=== PATIENT | male | born 2000 | race Caucasian/White ===

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

== ENCOUNTER 2019-03-03 12:20 | Inpatient (IN) | payer OTHER | END 2019-03-07 16:17 | disposition home or self-care (01) | LOC: JER 12:20 → JERBED 21:57 → J8W 23:31 ==

== ENCOUNTER 2020-02-07 20:01 | Emergency (ER) | payer OTHER ==
[2020-02-07 20:16] VITALS: BP 129/87; PULSE 74; TEMP 98.9; BMI 25.7
[2020-02-07] MEDS ORDERED: ACETAMINOPHEN 500 MG TABLET (FP) PO ONE (20:31)
--- NOTE | 2020-02-07 20:34 | PDOC ---
History of Present Illness - General Chief Complaint: Injury Stated Complaint: INJURY Time Seen by Provider: 02/07/20 20:21 History Source: Patient Exam Limitations: No Limitations - History of Present Illness Initial Comments: 02/07/20 20:32 19M PMH asthma p/w right 5th knuckle pain and swelling after punching sheetrock wall. Has recently sustained injury in same region and was found to have right 5th metacarpal neck fracture on 12/23/19. Was unable to follow up with hand surgery. Denies sensory changes. PCN allergy. Past History - Medical History Allergies/Adverse Reactions: Allergies Allergy/AdvReac Type Severity Reaction Status Date / Time amoxicillin Allergy Verified 12/23/19 17:59 Penicillins Allergy Verified 12/23/19 17:59 Home Medications: Ambulatory Orders Ibuprofen [Advil -] 200 mg PO PRN PRN 03/03/19 COPD: No Psychiatric Problems: Yes (ADHD) - Psycho-Social/Smoking History Smoking History: Never smoked Have you smoked in the past 12 months: No Number of Cigarettes Smoked Daily: 3 - Substance Abuse Hx (Audit-C & DAST Scrn) How often the patient has a drink containing alcohol: Never Score: In Men: 4 or > Positive; In Women: 3 or > Positive: 0 Screen Result (Pos requires Nsg. Audit-10AR): Negative Review of Systems - Review of Systems Comments:: 02/08/20 06:06 CONSTITUTIONAL: Denies F / C HEENT: Denies headache, lightheadedness, dizziness, changes in vision / hearing, diplopia, blurry vision, sore throat, rhinorrhea RESP: Denies SOB, cough, orthopnea, BISWAS CARD: Denies chest pain, palpitations GI: Denies N / V / D, abdominal pain, bloody stool, inability to tolerate PO : Denies dysuria, hematuria, frequency NEURO: Denies numbness, tingling, weakness MSK: + right hand pain and swelling, see HPI SKIN: Denies rashes *Physical Exam - Vital Signs Last Vital Signs Temp Pulse Resp BP Pulse Ox 98.9 F 74 20 129/87 99 02/07/20 20:10 02/07/20 20:10 02/07/20 20:10 02/07/20 20:10 02/07/20 20:10 - Physical Exam 02/08/20 06:06 GEN: Well appearing, NAD, comfortable. AAOx3. HEENT: NC/AT, EOMI, PERRL. No facial asymmetry. Moist mucous membranes. Normal voice. Supple neck w/ FROM. CV: S1/S2, RRR, no m/r/g LUNG: CTAB, no wheezes, crackles, rales, rhonchi. GI: Soft, ndnt, +BS, no guarding, no rebound. No masses. MSK: 2+ distal pulses. No LE edema. +TTP of the 5th metacarpal neck with associated soft tissue swelling. No erythema. FROM of the hands/wrists/fingers. No sensory changes. SKIN: Warm, dry, no rashes appreciated. PSYCH: Normal mood and affect. NEURO: Moving all extremities well. 19M w/ right 5th metacarpal neck pain after punching wall. +tenderness and soft tissue swelling; but FROM of the hands/fingers/wrists. NVI. - pain ctrl - XR ED team reviewed XR images - no obvious fractures pain sufficiently controlled DC'd home w/ ortho f/u and return precautions ED Treatment Course - RADIOLOGY Radiology Studies Ordered: Category Date Time Status WRIST W/HAND-RIGHT* [RAD] Stat Radiology 02/07/20 20:31 Ordered Discharge - Discharge Information Problems reviewed: Yes Clinical Impression/Diagnosis: Hand pain, right Condition: Stable Disposition: HOME - Admission No - Follow up/Referral Referrals: Jaron Be DO [Staff Physician] - - Patient Discharge Instructions Patient Printed Discharge Instructions: DI for Hand Pain Additional Instructions: Take ibuprofen (e.g. Motrin) for pain as directed by the label. Try to avoid punching objects. Additionally, use the RICE method to help alleviate the pain: Rest Ice the affected area, 20 minutes on and 20 minutes off. Compress (warm/cold compresses) Elevate the affected area Follow up with Orthopedic Surgery in the next 7-14 days. Call and schedule an appointment at the number attached. Follow up with your primary care doctor regarding this visit in the next 10-14 days Immediately return to the nearest Emergency Department if you experience worsening symptoms or if you develop new or concerning symptoms. - Post Discharge Activity
[2020-02-07] MEDS ORDERED: ACETAMINOPHEN 325 MG TABLET (FP) ONE (20:53)
--- NOTE | 2020-02-07 21:04 | PDOC ---
Documentation entered by Donald Redman SCRIBE, acting as scribe for Shanelle uRiz DO. Shanelle Ruiz DO: This documentation has been prepared by the Bandar johnson Nirvannie, SCRIBE, under my direction and personally reviewed by me in its entirety. I confirm that the documentation accurately reflects all work, treatment, procedures, and medical decision making performed by me. Attending Attestation - Resident Resident Name: Griffin Jarrell - ED Attending Attestation I have performed the following: I have examined & evaluated the patient, The case was reviewed & discussed with the resident, I agree w/resident's findings & plan, Exceptions are as noted - HPI HPI: 02/07/20 21:06 The patient is a 19 year old male with a significant past medical history of anger management, asthma, and recent 5th metacarpal neck fracture on 12/23/19 who presents to the ED with right 5th knuckle pain with associated swelling. As per patient, he was playing fighting with his cousin at which time he accidentally hit a [employer] wall, onsetting pain and swelling to the affected area. He denies any change in strength or sensation to the affected area. Patient is unable to followup with hand secondary to current outbreak. Allergies: Amoxicillin, PCN - Physicial Exam PE: 02/07/20 21:07 Constitutional: Awake, alert, oriented. No acute distress. Head: Normocephalic. Atraumatic Eyes: PERRL. EOMI. Conjunctivae are not pale. ENT: Mucous membranes are moist and intact. Posterior pharynx without exudates or erythema. Uvula midline. Neck: Supple. Full ROM. No lymphadenopathy. Cardiovascular: Regular rate. Regular rhythm. S1, S2 regular. Distal pulses are 2+ and symmetric. Pulmonary/Chest: No evidence of respiratory distress. Clear to auscultation bilaterally No wheezing, rales or rhonchi. Abdominal: Soft and non-distended. There is no tenderness. No rebound, guarding or rigidity. No organomegaly. No palpable masses. Good bowel sounds. Back: No CVA tenderness. Musculoskeletal: +Right 5th metatarsal pain to the MCP. Able to blasting helper and release without difficulties. No edema. No cyanosis. No clubbing. Full range of motion in all extremities. No calf tenderness. Radial/pedal pulses are intact and 2+ bilaterally Skin: Skin is warm and dry. No petechiae. No purpura. Neurological: Alert and oriented to person, place, and time. Cranial nerves II-XII are grossly intact. Normal speech. Strength is grossly symmetric. No sensory deficits. Psychiatric: Good eye contact. Normal interaction, affect and behavior. - Medical Decision Making 02/07/20 21:02 a/p: 19yo male with R hand injury back in november who punched a wall tonight because he was mad at his cousin -denies si/hi -states he has a hx of anger management issues -R fifth met ttp -xray ordered that does not show a fx on the wet read -stable for dc to home with motrin and ice -tetanus utd no lacerations or bites to the hand Discharge - Discharge Information Problems reviewed: Yes Clinical Impression/Diagnosis: Hand pain, right Condition: Stable Disposition: HOME - Admission No - Follow up/Referral Referrals: Jaron Be DO [Staff Physician] - - Patient Discharge Instructions - Post Discharge Activity
== END 2020-02-07 21:30 | disposition home or self-care (01) ==
LOC: JER 20:01
DX: M79.641 Pain in right hand (principal)
CPT/HCPCS: 73110-TC-RT-FY; 73130-TC-RT-FY; 99283-25

== ENCOUNTER 2020-02-25 22:11 | Emergency (ER) | payer OTHER ==
[2020-02-25 22:22] VITALS: BP 117/75; PULSE 77; TEMP 98.2; BMI 25.9
--- NOTE | 2020-02-25 22:22 | PDOC ---
Rapid Medical Evaluation Time Seen by Provider: 02/25/20 22:12 Medical Evaluation: Allergies Allergy/AdvReac Type Severity Reaction Status Date / Time amoxicillin Allergy Verified 12/23/19 17:59 Penicillins Allergy Verified 12/23/19 17:59 02/25/20 22:20 I have performed a brief in-person evaluation of this patient. CC: chest heaviness, AM SOB; PMHx asthma PE: No focal findings Orders: EKG Patient will proceed to ED for further evaluation. 02/25/20 22:21 Discharge Disposition - Diagnosis Chest tightness - Referrals - Patient Instructions - Post Discharge Activity
--- NOTE | 2020-02-25 22:54 | PDOC ---
Attending Attestation - Resident Resident Name: Fazal Malloy - ED Attending Attestation I have performed the following: I have examined & evaluated the patient, The case was reviewed & discussed with the resident, I agree w/resident's findings & plan - HPI HPI: 02/25/20 23:47 Pt comes with chest pain that has been ongoing for 2 months. He has a hx of asthma and states that he hasn't taken his inhaler in 2 months because he feels that he has no asthma. Pt last smoked weed 2 weeks ago; he last smoker hooka recentl;y and he doesn't smoke cigarettes. 02/25/20 23:53 Pt states that he feels like he has gained a lot of weight from the junk food he has been eating and the overweight has caused him to have SOB. Pt has no chest pain and no abd pain He has normal bowel movements. - Physicial Exam PE: 02/25/20 23:50 Normal exam. Pt has no fever no chills No abd pain and no flank pain Pt has normal heart and lungs and vitals Pt has normal neuro exam - Medical Decision Making 02/25/20 23:52 Pt has no wheeze and no fever CXR looks normal; he has some air in the stomach; looks like air under the diaphragm Pt has no abd pain He has no change in appetite 02/26/20 00:24 Referring Physician: OLIMPIA DIEHL RESIDENT Patient Name: FAZAL LARKIN THIS IS A PRELIMINARY REPORT FROM [facility] DATE OF SERVICE: 2020-02-25 22:57:10 IMAGES: 3 EXAM: CHEST PA \T\ LAT HISTORY: Chest heaviness COMPARISON: None. FINDINGS: The cardiomediastinal silhouette is normal. The lungs are clear. The bones and soft tissues are normal. IMPRESSION: Normal chest. Discharge - Discharge Information Problems reviewed: Yes Clinical Impression/Diagnosis: Chest tightness Condition: Improved Disposition: HOME - Additional Discharge Information Prescriptions: Inhaler, Assist Devices [Space Chamber Plus] 1 each ONCE #1 spacer - Follow up/Referral Referrals: Frank Broussard MD [Primary Care Provider] - - Patient Discharge Instructions Patient Printed Discharge Instructions: Asthma -- Adult, DI for Asthma -- Adult Additional Instructions: Please make a follow up appointment with your primary care doctor within the next week to follow up on your asthma medication. Please use your albuterol inhaler 2 puffs as needed for your chest discomfort. Please picker packer a spacer from [facility] for your inhaler. If you experience any new, worsening, or concerning symptoms, including worsening chest pain, shortness of breath, nausea, vomiting, dizziness, headache, or any other concerns, please return to the emergency department. - Post Discharge Activity
[2020-02-25] MEDS ORDERED: ALBUTEROL SO4 HFA INHALER IH ONE ×3 (22:55→23:29)
--- NOTE | 2020-02-25 22:56 | PDOC ---
History of Present Illness - General Chief Complaint: Chest Pain Stated Complaint: CHEST PAIN Time Seen by Provider: 02/25/20 22:12 - History of Present Illness Initial Comments: Kobe Reza is a 19 y/o male with PMH significant for asthma presenting today with chest heaviness and pain for the past two months. Reports that the pain is worse in the morning when he wakes up. Describes it as diffuse chest heaviness and sharp pain over the sternum. Reports that the pain has been constant over the past two months and has not changed in quality. Non exertional. Non pleuritic. Non reproducible. No pain radiation. Shortness of breath does not worsen on exertion. Reports drinking a bottle of liquor Wednesday night and vomiting 2-3x. No other nausea/vomiting since then. He has an rescue albuterol inhaler at home which has not needed to use. No headache/dizziness. No back pain. No dysuria/diarrhea/constipation. No leg swelling. SocHx: smokes hooka/marijuana twice a week. No vaping. No cigarette smoking. No ETOH. Past History - Medical History Allergies/Adverse Reactions: Allergies Allergy/AdvReac Type Severity Reaction Status Date / Time amoxicillin Allergy Verified 12/23/19 17:59 Penicillins Allergy Verified 12/23/19 17:59 Home Medications: Ambulatory Orders Ibuprofen [Advil -] 200 mg PO PRN PRN 03/03/19 Inhaler, Assist Devices [Space Chamber Plus] 1 each MC ONCE #1 spacer 02/26/20 COPD: No Psychiatric Problems: Yes (ADHD) - Psycho-Social/Smoking History Smoking History: Never smoked Have you smoked in the past 12 months: No Number of Cigarettes Smoked Daily: 3 - Substance Abuse Hx (Audit-C & DAST Scrn) How often the patient has a drink containing alcohol: Never Score: In Men: 4 or > Positive; In Women: 3 or > Positive: 0 Screen Result (Pos requires Nsg. Audit-10AR): Negative Review of Systems - Review of Systems Comments:: GENERAL/CONSTITUTIONAL: No fever or chills. No weakness._ HEAD, EYES, EARS, NOSE AND THROAT: No change in vision. No change in hearing. No sore throat._ CARDIOVASCULAR: Reports chest pain, chest heaviness, and shortness of breath. RESPIRATORY: Denies cough, hemoptysis_ GASTROINTESTINAL: No nausea, vomiting, diarrhea or constipation._ GENITOURINARY: No dysuria, frequency, or change in urination._ MUSCULOSKELETAL: No joint or muscle swelling or pain. No neck or back pain._ SKIN: No rash_ NEUROLOGIC: No headache, vertigo, loss of consciousness, or change in str ength/sensation._ ENDOCRINE: No increased thirst. No abnormal weight change_ HEMATOLOGIC/LYMPHATIC: No anemia, easy bleeding, or history of blood clots._ ALLERGIC/IMMUNOLOGIC: No hives or skin allergy._ *Physical Exam - Vital Signs Last Vital Signs Temp Pulse Resp BP Pulse Ox 98.2 F 77 19 117/75 97 02/25/20 22:12 02/25/20 22:12 02/25/20 22:12 02/25/20 22:12 02/25/20 22:12 - Physical Exam GENERAL: Awake, alert, and oriented to person/place/time, in no acute distress_ HEAD: No signs of trauma, normocephalic, atraumatic _ EYES: PERRLA, EOMI, sclera anicteric, conjunctiva clear_ ENT: Hearing grossly normal, nares patent, oropharynx clear without exudates. No uvular deviation. Moist mucosa_ NECK: Normal ROM, supple, no lymphadenopathy, JVD, or masses_ LUNGS: No distress, speaks in full sentences, clear to auscultation bilaterally _ HEART: Regular rate and rhythm, normal S1 and S2, no murmurs appreciated, peripheral pulses normal and equal bilaterally._ ABDOMEN: Soft, nontender, normoactive bowel sounds. No guarding, no rebound. No masses_ EXTREMITIES: Normal inspection, Normal range of motion, no edema. No clubbing or cyanosis_ NEUROLOGICAL: Cranial nerves II through XII grossly intact. Normal speech, normal gait, no focal sensorimotor deficits _ SKIN: Warm, Dry, normal turgor, no rashes or lesions noted_ ED Treatment Course - RADIOLOGY Radiology Studies Ordered: Category Date Time Status CHEST PA & LAT [RAD] Stat Radiology 02/25/20 22:53 Ordered Medical Decision Making - Medical Decision Making 02/25/20 22:55 19M hx of asthma presenting today with two months of chest heaviness and chest pain. Pt is not in respiratory distress. Lungs CTAB. HEART score 1 (smoking). DDx includes likely asthma vs less likely MSK chest discomfort. -albuterol inhaler -CXR -EKG EKG shows 78 bpm, NSR, no axis deviation, ID 150, QTc 410, no ST elevation/depression. 02/25/20 23:14 CXR negative for acute intrathoracic pathology. Pt reassessed after MDI albuterol inhaler. Lungs CTAB. Plan to d/c home with ventolin inhaler and PCP f/u. All questions answered. Return precautions given. Pt verbalized understanding and agreement with plan. Discharge - Discharge Information Problems reviewed: Yes Clinical Impression/Diagnosis: Chest tightness Condition: Improved Disposition: HOME - Additional Discharge Information Prescriptions: Inhaler, Assist Devices [Space Chamber Plus] 1 each MC ONCE #1 spacer - Follow up/Referral Referrals: Frank Broussard MD [Primary Care Provider] - - Patient Discharge Instructions Patient Printed Discharge Instructions: Asthma -- Adult, DI for Asthma -- Adult Additional Instructions: Please make a follow up appointment with your primary care doctor within the next week to follow up on your asthma medication. Please use your albuterol inhaler 2 puffs as needed for your chest discomfort. Please pick and shovel man a spacer from [facility] for your inhaler. If you experience any new, worsening, or concerning symptoms, including worsening chest pain, shortness of breath, nausea, vomiting, dizziness, headache, or any other concerns, please return to the emergency department. - Post Discharge Activity
[2020-02-25] MEDS ORDERED: BUDESONIDE/FORMETEROL FUMARATE 80/4.5 mcg INHALER IH ONE (23:36)
--- NOTE | 2020-02-26 09:54 | EKG ---
Test Reason : Blood Pressure : / mmHG Vent. Rate : 078 BPM Atrial Rate : 078 BPM P-R Int : 150 ms QRS Dur : 106 ms QT Int : 360 ms P-R-T Axes : 065 077 045 degrees QTc Int : 410 ms NORMAL SINUS RHYTHM NORMAL ECG WHEN COMPARED WITH ECG OF 05-MAR-2019 18:02, NO SIGNIFICANT CHANGE WAS FOUND Confirmed by Chaparro Scott ([id number]) on 02/26/2020 9:54:12 AM Referred By: Confirmed By:Chaparro Scott
== END 2020-02-26 00:27 | disposition home or self-care (01) ==
LOC: JER 22:11
DX: R07.89 Other chest pain (principal)
CPT/HCPCS: 71046-TC-FY; 93005; 93010; 99284-25

== ENCOUNTER 2020-04-12 09:55 | Emergency (ER) | payer OTHER ==
[2020-04-12 10:04] VITALS: BP 115/74; PULSE 65; TEMP 97.5; BMI 25.0
--- NOTE | 2020-04-12 10:42 | PDOC ---
History of Present Illness - General Chief Complaint: Asthma Stated Complaint: CHEST TIGHTNESS Time Seen by Provider: 04/12/20 10:36 History Source: Patient Exam Limitations: No Limitations - History of Present Illness Initial Comments: 04/12/20 10:27 19-year-old male presents to ED with intermittent chest tightness worsen as the day goes on describing it as also a burning sensation up to his mid chest. Patient initially thought it was his asthma so use his inhaler as needed over the past few weeks with moderate improvement. Patient denies wheezing, cough, shortness of breath, fever, chills or lateral chest pain or palpitations. Patient states often eats fast food and smokes hookah occasionally but denies any other social habits. Is this a multiple visit Asthma Patient?: No Timing/Duration: reports: other, intermittent Severity: reports: mild Associated Symptoms: reports: other Past History - Travel History Traveled outside of the country in the last 30 days: No Close contact w/someone who was outside of country & ill: No - Medical History Allergies/Adverse Reactions: Allergies Allergy/AdvReac Type Severity Reaction Status Date / Time amoxicillin Allergy Verified 04/12/20 10:23 Penicillins Allergy Verified 04/12/20 10:23 Home Medications: Ambulatory Orders Ibuprofen [Advil -] 200 mg PO PRN PRN 03/03/19 Inhaler, Assist Devices [Space Chamber Plus] 1 each MC ONCE #1 spacer 02/26/20 Asthma: Yes COPD: No Psychiatric Problems: Yes (ADHD) - Psycho-Social/Smoking History Patient Lives Alone: No Lives with/in: parents Smoking History: Current every day smoker Have you smoked in the past 12 months: No Number of Cigarettes Smoked Daily: 3 Information on smoking cessation initiated: No - Substance Abuse Hx (Audit-C & DAST Scrn) How often the patient has a drink containing alcohol: Never Score: In Men: 4 or > Positive; In Women: 3 or > Positive: 0 Screen Result (Pos requires Nsg. Audit-10AR): Negative Respiratory Specific PMHX - Complaint Specific PMHX Hx Asthma: Yes Review of Systems - Review of Systems Able to Perform ROS?: Yes Constitutional: No: Symptoms Reported HEENTM: No: Symptoms Reported Respiratory: No: Symptoms reported Cardiac (ROS): Yes: Chest Tightness ABD/GI: Yes: Other (Burning to mid lower chest) Integumentary: No: Symptoms Reported Neurological: No: Symptoms reported Hematologic/Lymphatic: No: Symptoms Reported *Physical Exam - Vital Signs Last Vital Signs Temp Pulse Resp BP Pulse Ox 97.5 F L 65 16 115/74 95 04/12/20 10:01 04/12/20 10:01 04/12/20 10:01 04/12/20 10:01 04/12/20 10:01 - Physical Exam General Appearance: Yes: Nourished, Appropriately Dressed. No: Apparent Distress HEENT: negative: Pale Conjunctivae Neck: positive: Supple Respiratory/Chest: positive: Chest Tender, Lungs Clear, Normal Breath Sounds. negative: Respiratory Distress, Accessory Muscle Use Cardiovascular: positive: Regular Rhythm, Regular Rate. negative: Murmur Gastrointestinal/Abdominal: positive: Soft. negative: Tenderness Integumentary: positive: Normal Color, Warm, Moist Neurologic: positive: Motor Strength 5/5 (Ambulatory) Medical Decision Making - Medical Decision Making 04/12/20 10:40 Chief complaint: Patient with chest tightness intermittently during the day into the night. Patient denies aggravating factors. Patient initially started with his asthma so started to use his inhaler as symptoms arrive with moderate to mild improvement. Patient states symptoms have been for the past month intermittently patient is described a burning to his mid chest Exam: Patient with normal PE and vital signs. Plan: Patient given instructions and recommendations in regards to GERD Discharge - Discharge Information Problems reviewed: Yes Clinical Impression/Diagnosis: Chest tightness Condition: Good Disposition: HOME - Admission No - Follow up/Referral Referrals: Frank Broussard MD [Primary Care Provider] - - Patient Discharge Instructions Patient Printed Discharge Instructions: Gastroesophageal Reflux Disease (Alternative Therapy), GERD Diet Additional Instructions: Read over information I have enclosed in regards to GERD. In the meanwhile avoid caffeine try to add exercise to your daily regimen and drink plenty of fluids - Post Discharge Activity
== END 2020-04-12 10:47 | disposition home or self-care (01) ==
LOC: JERFT 09:55
DX: R07.89 Other chest pain (principal)
CPT/HCPCS: 99284-25

== ENCOUNTER 2020-06-24 14:12 | Emergency (ER) | payer OTHER | END 2020-06-24 14:59 | disposition home or self-care (01) | LOC: JVIRT 14:12 | DX: Z03.818 Encounter for observation for suspected exposure to other biological agents ruled out (principal); J06.9 Acute upper respiratory infection, unspecified | CPT/HCPCS: C9803; G2012-GT; U0003 ==

== ENCOUNTER 2020-06-26 13:40 | Emergency (ER) | payer OTHER ==
[2020-06-26 13:48] VITALS: BP 131/73; PULSE 84; TEMP 98.7; BMI 25.0
== END 2020-06-26 15:28 | disposition home or self-care (01) ==
LOC: JERFT 13:40
DX: J02.9 Acute pharyngitis, unspecified (principal)
CPT/HCPCS: 87070; 87880; 99283-25

== ENCOUNTER 2020-11-04 18:38 | Emergency (ER) | payer OTHER ==
[2020-11-04 19:08] VITALS: BP 127/78; PULSE 74; TEMP 97.9; BMI 28.1
== END 2020-11-04 20:46 | disposition home or self-care (01) ==
LOC: JERFT 18:38
DX: M79.641 Pain in right hand (principal)
CPT/HCPCS: 73110-TC-RT-FY; 73130-TC-RT-FY; 99283-25

== ENCOUNTER 2021-11-01 14:14 | Emergency (ER) | payer OTHER ==
[2021-11-01 14:21] VITALS: BP 118/78; PULSE 102; TEMP 102.1; BMI 27.6
[2021-11-01] MEDS ORDERED: ACETAMINOPHEN 500 MG TABLET (FP) PO ONE (14:42)
[2021-11-01] MEDS ORDERED: ACETAMINOPHEN 500 MG TABLET (FP) ONE (14:43)
[2021-11-02 16:07] LABS: SARS-CoV-2 NAA Not Detected (Not Detected)
== END 2021-11-01 15:32 | disposition home or self-care (01) ==
LOC: JER 14:14
DX: J03.90 Acute tonsillitis, unspecified (principal)
CPT/HCPCS: 87651; 87804; 99283-25; C9803-CS; U0003; U0005

== ENCOUNTER 2022-03-27 08:03 | Emergency (ER) | payer OTHER ==
[2022-03-27 08:14] VITALS: BP 125/77; PULSE 75; RESP 16; TEMP 98.4; BMI 28.1
== END 2022-03-27 08:59 | disposition home or self-care (01) ==
LOC: JER 08:03
DX: J06.9 Acute upper respiratory infection, unspecified (principal); Z20.822 Contact with and (suspected) exposure to COVID-19
CPT/HCPCS: 0241U-QW; 87651; 99283-25

== ENCOUNTER 2022-09-05 10:24 | Emergency (ER) | payer OTHER ==
[2022-09-05 10:54] VITALS: BP 122/81; PULSE 86; RESP 18; TEMP 99.5; BMI 28.8
== END 2022-09-05 12:28 | disposition home or self-care (01) ==
LOC: JERFT 10:24 → JER 10:24 → JERFT 12:28
DX: J06.9 Acute upper respiratory infection, unspecified (principal)
CPT/HCPCS: 0241U-QW; 87651; 99283-25

== ENCOUNTER 2023-09-15 16:51 | Emergency (ER) | payer OTHER ==
[2023-09-15 17:12] VITALS: BP 120/64; PULSE 62; RESP 18; TEMP 98.2; BMI 27.2
== END 2023-09-15 18:21 | disposition home or self-care (01) ==
LOC: JERFT 16:51
DX: R07.89 Other chest pain (principal); Z20.822 Contact with and (suspected) exposure to COVID-19
CPT/HCPCS: 0241U-QW; 71046-TC-FY; 93005; 93010; 99285-25